=== PATIENT | female | born 1985 | race Caucasian/White ===

== ENCOUNTER 2019-04-20 07:42 | Emergency (ER) | payer OTHER ==
[2019-04-20 07:48] VITALS: BP 126/76
--- NOTE | 2019-04-20 08:38 | RADIOLOGY REPORT (SQ) ---
EXAM DESCRIPTION: ANKLE RIGHT COMPLETE COMPLETED DATE/TIME: 04/20/2019 8:24 am REASON FOR STUDY: unable to bear weight COMPARISON: None. NUMBER OF VIEWS: Three views. TECHNIQUE: AP, lateral, and oblique radiographic images acquired of the right ankle. LIMITATIONS: None. FINDINGS: MINERALIZATION: Normal. BONES: Transversely oriented cortical irregularity at the distal aspect of the fibula with associated soft tissue swelling most compatible avulsion injury. There is subchondral sclerosis and lucency al casey the medial talar dome compatible with an osteochondral defect. No intra-articular loose body. N o additional fractures identified. JOINTS: No dislocation. Imaged joint effusion present. SOFT TISSUES: Soft tissue swelling about the ankle, greatest laterally. OTHER: No other significant finding. IMPRESSION: 1. Small transversely oriented cortical defect along the distal fibula most compatible with a distal fibular avulsion fracture. 2. Osteochondral defect involving the medial talar dome. No significant displacement or intra-artic ular loose body. MRI could be considered for further characterization of stability. TECHNICAL DOCUMENTATION: JOB ID: [id number] [employer] All Rights Reserved Reading location - IP/workstation name: [email or web address]
--- NOTE | 2019-04-20 09:38 | ER Document Report ---
ED Fall - General Chief Complaint: Fall Injury Stated Complaint: FALL Time Seen by Provider: 04/20/19 09:24 Primary Care Provider: SY NY MD [COMMUNITY BASED STAFF] - Follow up as needed Mode of Arrival: Ambulatory Information source: Patient Notes: 34-year-old female presented to ED for complaint of fall injuring her right lateral ankle. She is alert oriented respirations regular and unlabored speaking in full sentences walks with a even steady gait. She states she does not have much of a medical history she did have pneumonia once in a foot fracture she states she has had a LEEP procedure done is a former smoker drinks once a week does not use drugs works at the [employer] with her family she stepped mom on her way into the hospital twisting her ankle. Patient is alert oriented respirations regular and unlabored speaking in full sentences TRAVEL OUTSIDE OF THE [place] IN LAST 30 DAYS: No - HPI Occurred: This morning Where: Work Context: Tripped Associated symptoms: Difficulty walking Location of injury/pain: Ankle, Elbow - Both, Knee - Abrasions Quality of pain: Burning, Sharp, Throbbing Severity: Moderate Pain Level: 2 - Related data Allergies/Adverse Reactions: Penicillins Allergy (Verified 04/20/19 08:00) Past Medical History - General Information source: Patient - Social History Smoking Status: Former Smoker Chew tobacco use (# tins/day): No Frequency of alcohol use: Social Drug Abuse: None Occupation: [employer] with: Family Family History: Reviewed & Not Pertinent Patient has suicidal ideation: No Patient has homicidal ideation: No - Past Medical History Cardiac Medical History: Reports: None Pulmonary Medical History: Reports: Hx Pneumonia EENT Medical History: Reports: None Neurological Medical History: Reports: None Endocrine Medical History: Reports: None Renal/ Medical History: Reports: None Malignancy Medical History: Reports: None GI Medical History: Reports: None Musculoskeletal Medical History: Reports None Skin Medical History: Reports None Psychiatric Medical History: Reports: None Traumatic Medical History: Reports: None Infectious Medical History: Reports: None Past Surgical History: Reports: Hx Gynecologic Surgery - Immunizations Immunizations up to date: Yes Hx Diphtheria, Pertussis, Tetanus Vaccination: Yes Review of Systems - Review of Systems Constitutional: No symptoms reported EENT: No symptoms reported Cardiovascular: No symptoms reported Respiratory: No symptoms reported Gastrointestinal: No symptoms reported Genitourinary: No symptoms reported Female Genitourinary: No symptoms reported Musculoskeletal: Ankle swelling - Right ankle pain and swelling Skin: Other - Abrasions left elbow and knee Hematologic/Lymphatic: No symptoms reported Neurological/Psychological: No symptoms reported -: Yes All other systems reviewed and negative Physical Exam - Vital signs Vitals: Temp Pulse Resp BP Pulse Ox 97.8 F 72 18 126/76 H 100 04/20/19 07:47 04/20/19 07:47 04/20/19 07:47 04/20/19 07:47 04/20/19 07:47 Interpretation: Normal - General General appearance: Appears well, Alert - HEENT Head: Normocephalic, Atraumatic Eyes: Normal Pupils: PERRL - Respiratory Respiratory status: No respiratory distress Chest status: Nontender Breath sounds: Normal Chest palpation: Normal - Cardiovascular Rhythm: Regular Heart sounds: Normal auscultation Murmur: No - Abdominal Inspection: Normal Distension: No distension Bowel sounds: Normal Tenderness: Nontender Organomegaly: No organomegaly - Back Back: Normal, Nontender - Extremities General upper extremity: Normal color, Normal temperature General lower extremity: Normal color, Normal temperature, Normal weight bearing. No: Cornelius's sign Elbow: Tender, Abrasion, Ecchymosis. No: Deformity, Dislocation, Instability, Joint effusion, Laceration, Limited ROM, Swollen bursa Thigh: No: Unable to bear weight Knee: Tender - Abrasions, Abrasion - left ankle, Ecchymosis, Pain with ROM, Patellar tendon intact. No: Dislocation, Drawer's test instability, Instability, Joint effusion, Laceration, Laxity with valgus stress, Laxity with varus stress, Popliteal fossa tender Ankle: Tender, Ecchymosis - Right ankle, Edema - Right ankle. No: Limited ROM - Very painful, Unable to bear weight - Very painful to bear weight Foot: Tender - Painful - Neurological Neuro grossly intact: Yes Cognition: Normal Orientation: AAOx4 [place] Coma Scale Eye Opening: Spontaneous [place] Coma Scale Verbal: Oriented [place] Coma Scale Motor: Obeys Commands [place] Coma Scale Total: 15 Speech: Normal Motor strength normal: LUE, RUE, LLE, RLE Sensory: Normal - Psychological Associated symptoms: Normal affect, Normal mood - Skin Skin Temperature: Warm Skin Moisture: Dry Skin Color: Normal Course - Re-evaluation Re-evalutation: 04/20/19 09:40 Transverse oriented avulsion fracture to the distal fibula with a talar deformity discussed with patient and written report of x-ray given to patient to follow-up with orthopedics. Patient will be treated with a posterior ankle splint crutches and pain medication. 04/20/19 09:42 Discussed deformity with radiologist on at #[id number]. He stated that this deformity to the Sonam is not acute but needs to be followed up with orthopedics I have discussed this with the patient. He states that he put on that if needed MRI but this is not needed to be done in the emergency room but should be followed up with orthopedics. - Vital Signs Vital signs: Temp Pulse Resp BP Pulse Ox 97.8 F 72 18 126/76 H 100 04/20/19 07:47 04/20/19 07:47 04/20/19 07:47 04/20/19 07:47 04/20/19 07:47 - Diagnostic Test Radiology reviewed: Image reviewed, Reports reviewed Procedures - Immobilization Right Ankle Time completed: 09:42 Immobilizer type: Crutches, Posterior ankle Performed by: PCT Post-Proc Neuro Vasc Exam: Normal Alignment checked and good: Yes Discharge - Discharge Clinical Impression: Closed avulsion fracture of distal end of right fibula Qualifiers: Encounter type: initial encounter Qualified Code(s): S82.831A - Other fracture of upper and lower end of right fibula, initial encounter for closed fracture Condition: Stable Disposition: HOME, SELF-CARE Additional Instructions: Avulsion Fracture of the Ankle There is a small chip fracture in your ankle. This fracture was caused by stretching the joint ligaments, which pulled off a small piece of bone. This injury is treated much the same as a severe sprain. At first, you should elevate, rest, and apply ice packs to the leg. Often, only an ankle brace or tape is necessary while the chip fracture heals. Sometimes a chip fracture of this type requires a cast or walking boot. The treatment plan may change, depending on how your ankle progresses. Chip fractures usually do not fuse back onto the bone, but rather scar down to the bone surface. You will most likely see this bone fragment on future x-rays. It's important that you follow the treatment program as outlined for now, then follow up for re-evaluation as scheduled. Call the doctor or return at once if pain or swelling becomes severe, or if you develop other unusual symptoms.SPRAIN: SPLINT PRECAUTIONS: A splint has been placed. This will protect the area while healing begins. Your problem does NOT normally require a cast. It MUST, however, be held still! Keep the splint on ALL THE TIME until instructed to remove it by the doctor. As you begin to use the area, be careful. You shouldn't do anything which causes discomfort -- you may disturb the injury even with the splint in place. After the initial period of rest and elevation, if splint does not prevent pain when you move, come back. You may require placement of a different splint, or a cast. If there is unexpected severe pain, or numbness, discoloration, or swelling beyond the splint, you should return at once. If you feel that the splint has broken or become loose, come back. USE OF CRUTCHES: The doctor has recommended that you not bear weight at this time. You will need to use crutches. Adjust the crutches so the tops come to about two inches under the armpit while you are standing upright. Use your hands -- not your armpits -- to support your weight. To get into a chair, support yourself with one crutch on the injured side. Hold the chair with the other hand, then lower yourself while putting all your weight on the good leg. Going up stairs is `good leg up, step up, then bring up crutches and bad le g.' Down stairs is `bad leg and crutches down, then bring good leg down.' If you develop numbness or swelling in an arm or hand, you are using the crutches incorrectly. Return if you are having any problems with the crutches. ICE & ELEVATION: Apply ice packs frequently against the painful area. Many different schedules are recommended, such as "20 minutes on, 20 minutes off" or "one hour ice, two hours rest." If you need to work, you may need to go longer between ice treatments. You should plan to have the area ice packed AT LEAST one-fourth of the time. The ice should be applied over the wrap, tape, or splint, or over a layer of cloth -- not directly against the skin. Some ice bags have a built-in cloth and can be put directly on the skin. Your injured part should be elevated as much as possible over the next 48 hours. Try to keep the injury above the level of the heart. Avoid use of the injured area. Elevation and rest will decrease the swelling. USE OF [id number] IBUPROFEN: Ibuprofen (Advil, Nuprin, Medipren, Motrin IB) is a medication for fever and pain control. In addition, it has anti- inflammatory effects which may be beneficial, especially in the treatment of injuries. It's best to take ibuprofen with food. Persons with ulcer disease or allergy to aspirin should notify their physician of this before taking ibuprofen. Ibuprofen can be given every four to six hours, for a total of four doses daily. Age Pain or fever dose Antiinflammatory dose 6-8 yr 200 mg (1 tab) 200 mg (1 tab) 9-11 yr 200 mg (1 tab) 200-400 mg (1-2 tab) 11-14 yr 200-400 mg (1-2 tab) 400 mg (2 tab) 15-adult 400 mg (2 tab) 600 mg (3 tab) ORAL NARCOTIC MEDICATION: You have been given a prescription for pain control. This medication is a narcotic. It's best taken with food, as nausea can result if taken on an empty stomach. Don't operate machinery or drive within six hours of taking this medication. Do not combine this medicine with alcohol, or with any medication which can cause sedation (such as cold tablets or sleeping pills) unless you get permission from the physician. Narcotics tend to cause constipation. If possible, drink plenty of fluids and eat a diet high in fiber and fruits. Please be aware that prescription narcotics also have the potential for abuse. People become addicted to these medications because of the general sense of wellbeing that they induce. This feeling along with a significant reduction in tension, anxiety, and aggression provides a stimulating seductive quality to these drugs. Once your pain is under control, we encourage you to discard your unused narcotics. FOLLOW-UP CARE: If you have been referred to a physician for follow-up care, call the physicians office for an appointment as you were instructed or within the next two days. If you experience worsening or a significant change in your symptoms, notify the physician immediately or return to the Emergency Department at any time for re-evaluation. Prescriptions: Hydrocodone/Acetaminophen [[place] 5-325 mg Tablet] 1 tab PO Q6HP PRN #5 tablet PRN Reason: Forms: Elevated Blood Pressure Referrals: SY [place] MD [COMMUNITY BASED STAFF] - Follow up as needed
== END 2019-04-20 10:01 | disposition home or self-care (01) ==
LOC: ER 07:42
DX: S82.831A Other fracture of upper and lower end of right fibula, initial encounter for closed fracture (principal); S50.00XA Contusion of unspecified elbow, initial encounter; S50.312A Abrasion of left elbow, initial encounter; S80.219A Abrasion, unspecified knee, initial encounter; W01.0XXA Fall on same level from slipping, tripping and stumbling without subsequent striking against object, initial encounter; Y93.89 Activity, other specified; Y92.239 Unspecified place in hospital as the place of occurrence of the external cause; Z87.891 Personal history of nicotine dependence; Z88.0 Allergy status to penicillin
CPT/HCPCS: 99283